=== PATIENT | female | born 1965 | race Caucasian/White ===

== ENCOUNTER 2019-07-25 07:58 | Day surgery (SDC) | payer OTHER ==
[~2019-07-25 07:58] MED LIST: Dextrose 5%-0.45% NaCl 1,000 ML IV SCH; Midazolam 1 MG/ML 2 ML SDV ONE; fentaNYL 100 MCG/2 ML SDV ONE
[2019-07-25] MEDS ORDERED: Midazolam 1 MG/ML 2 ML SDV IV ONE ×7 (07:59→09:36)
[2019-07-25] MEDS ORDERED: fentaNYL 100 MCG/2 ML SDV IV ONE ×3 (07:59→09:30)
--- NOTE | 2019-07-25 14:33 | OR ---
DATE: 07/25/2019 PREOPERATIVE DIAGNOSIS: Screening colonoscopy. POSTOPERATIVE DIAGNOSIS: Screening colonoscopy. PROCEDURE: Total colonoscopy with snare excision of sigmoid polyp at 25 cm. ANESTHESIA: Conscious sedation with IV Versed and fentanyl. SPECIMEN: Sigmoid polyp. OPERATIVE FINDING: Small 2 to 3 mm sigmoid polyp and moderate sigmoid diverticulosis. RECOMMENDATION: Followup screening colonoscopy for polyps, 5 years. INDICATION FOR PROCEDURE: This 54-year-old female has had a prior colonoscopy but over 10 years ago. She essentially presents for screening. She does have a family history of colon cancer with her father having it, however, he was elderly aged at that time. PROCEDURE IN DETAIL: After adequate preparation, a colonoscope was inserted into the rectum. This was passed all the way to the right colon. I could not advance down into the cecum as well as I would like, but I was able to screen adequately the right colon and the bowel prep was excellent. On withdrawal of the scope, there was a small 3 mm polyp in the mid sigmoid colon and a small snare was placed around this, clipped off and retrieved for pathological evaluation. She also does have moderate sigmoid diverticulosis. Anal and rectal examination were normal. Air was suctioned from the colon and the scope removed. [facility] /[id number]
== END 2019-07-25 12:00 | disposition home or self-care (01) ==
LOC: DL.ENDO 07:58
PROVIDERS: ATTEND Surgery
DX: Z12.11 Encounter for screening for malignant neoplasm of colon (principal); D12.5 Benign neoplasm of sigmoid colon; K57.30 Diverticulosis of large intestine without perforation or abscess without bleeding; Z88.8 Allergy status to other drugs, medicaments and biological substances; Z87.891 Personal history of nicotine dependence; Z80.0 Family history of malignant neoplasm of digestive organs
CPT/HCPCS: 45385; J2250; J3010; J7042